=== PATIENT | female | born 1940 | race Caucasian/White ===

== ENCOUNTER → 2016-11-19 | Outpatient (CLI) | payer OTHER ==
[~2016-11-19] MED LIST: GADOBUTROL 10 ML VIAL IVP ONE
[2016-11-19 13:38] LABS: CREATININE 0.6 mg/dL (0.6-1.0); GLOMERULAR FILTRATION RATE > 60
== END ==
LOC: FIMAGING 12:03
DX: G35 Multiple sclerosis (principal); H57.9 Unspecified disorder of eye and adnexa
CPT/HCPCS: 70553; A9585

== ENCOUNTER → 2018-01-20 | Outpatient (CLI) | payer OTHER | LOC: FIMAGING 12:19 | PROVIDERS: ATTEND Family Medicine Geriatric Medicine | DX: Z12.31 Encounter for screening mammogram for malignant neoplasm of breast (principal) ==